=== PATIENT | male | born 1965 | race Caucasian/White ===

== ENCOUNTER 2023-10-25 15:29 | Emergency (ER) | payer OTHER, SELFPAY ==
--- NOTE | ~2023-10-25 | XR_ITS ---
EXAMINATION: XR CHEST CLINICAL INFORMATION: Shortness of breath COMPARISON: None available. TECHNIQUE: 2 views of the chest were obtained. FINDINGS: No significant abnormality is noted involving the heart, lungs, mediastinum, bony thorax or soft tissues. XR/XR chest 2V IMPRESSION: Unremarkable examination.
--- NOTE | ~2023-10-25 | CT_ITS ---
EXAMINATION: CT CHEST WITHOUT CONTRAST CLINICAL INFORMATION: Cough and dyspnea COMPARISON: Chest radiograph earlier today TECHNIQUE: Multidetector volumetric CT imaging of the chest was done. Axial MIP volume rendering provided. Sagittal and coronal reformatted images were obtained. This CT examination was performed using dose optimization techniques as appropriate, variously including the following: *Automated exposure control *Adjustment of mA and/or kV according to patient size (this includes techniques or standardized protocols for targeted exams where dose is matched to indication/reason for exam; i.e. extremities or head) *Use of iterative reconstruction technique DLP: 290 mGy-cm FINDINGS: LUNGS: There is some mild peribronchial thickening present. Some bibasilar atelectasis is seen. No worrisome lung nodules are seen. A right upper lobe calcified granuloma is present. MEDIASTINUM: The mediastinum is normal. CORONARY ARTERY CALCIFICATION: None visualized on this study. PLEURA: There is no pleural effusion. No pleural mass or thickening. AXILLA: No lymphadenopathy. UPPER ABDOMEN: There is hepatosplenomegaly. The adrenal glands and visualized pancreas and kidneys are unremarkable. OSSEOUS STRUCTURES: Unremarkable. CT/CT chest wo IV con IMPRESSION: 1. Mild peribronchial thickening and bibasilar atelectasis. 2. Hepatosplenomegaly. Fleischner guidelines were followed.
[2023-10-25 15:38] VITALS: BP 152/102; PULSE 70; RESP 18; TEMP 37.1; O2SAT 96; BMI 34.6
--- NOTE | 2023-10-25 15:40 | ED_ITS ---
HPI - SOB/Dyspnea General Chief Complaint: Dyspnea Stated Complaint: SOB Time Seen by Provider: 10/25/23 16:38 Source: patient and family Mode of arrival: ambulatory Limitations: no limitations History of Present Illness HPI Narrative: 58 yo male with PMH of asthma, treated hep C no hx of cirrhosis, HIV with reported undetectable viral load, on maintenance methadone here with c/o 1 week of orthopnea, weight gain, LE edema he has never been on a diuretic before. It is worse at night and he cannot breathe. At this time he denies chest pain. He denies fevers, travel, productive cough. MD elicited complaint: shortness of breath Pertinent past history: asthma Onset (ago): week(s) (1) Timing: progressively worsening Severity: moderate Exacerbating factors: lying flat and exertion Relieving factors: rest and upright position Known history of: asthma Associated symptoms: wheezing, orthopnea and other (leg edema) Treatment prior to arrival: none Related Data Previous Rx's Medication Instructions Recorded albuterol sulfate 90 mcg/actuation 2 puff inhalation QID PRN 10/25/23 aerosol inhaler shortness of breath or wheezing #6.7 grams azithromycin 250 mg tablet See Rx Instructions PO .COMPLEX #6 10/25/23 tabs furosemide 40 mg tablet (Lasix) 40 mg PO DAILY #4 tabs 10/25/23 prednisone 20 mg tablet 40 mg (2 x 20 mg) PO DAILY 4 days 10/25/23 #8 tabs Allergies Allergy/AdvReac Type Severity Reaction Status Date / Time No Known Allergies Allergy Verified 10/25/23 15:42 Review of Systems 2 Review of Systems: Constitutional : No Fever, No Chills ENT/Mouth : No sore throat, No Rhinorrhea, No Swallowing Difficulty Eyes: No Eye Pain, No Swelling, No Redness Cardiovascular : No Chest Pain, positive SOB, pos Orthopnea, positive Edema Respiratory : No Cough, No Sputum, pos Wheezing, positive dyspnea Gastrointestinal : No Nausea, No Vomiting, No Diarrhea, No abdominal Pain, No Hematochezia, No Melena Genitourinary : No Dysuria, No Urinary Frequency, No Hematuria Musculoskeletal : No joint pain, No Myalgias Skin : No Skin Lesions, No rash Neuro : No Weakness, No Numbness, No Dizziness, No Headache Psych : No Anxiety/Panic, No Depression All other systems reviewed and are negative [facility] Past Medical History Attestation statement: The following information was validated with the patient. Onset Date is defined in the Problem List Problems that require an onset date and time if occurred within 24 hrs of arrival to the ED Aortic Dissection and Rupture; Neurologic impairment; Cardiopulmonary Arrest; Endotracheal Intubation; Insertion or Replacement of Mechanical Circulatory Assist Device Medical History (Updated 10/25/23 @ 19:34 by Toña Murray DO) Asthma assisted current use of opiate analgesic Hepatitis C HIV (human immunodeficiency virus infection) Social History Social History (Updated 10/25/23 @ 17:13 by Toña Murray DO) Patient Tobacco Use Status: Former Tobacco user Advance Directives: No Advance Directives Information Provided: No Physical Exam 2 Vital Signs: Vital Signs: Last Vital Signs Temp 97.9 F 10/25/23 19:18 Pulse 66 10/25/23 19:18 Resp 17 10/25/23 19:18 BP 134/74 10/25/23 19:18 Pulse Ox 94 10/25/23 19:18 O2 Del Method Room Air 10/25/23 19:18 BMI result Body Mass Index 34.6 Appearance: Alert. Oriented X3. No acute distress. Eyes: Pupils equal, round and reactive to light. ENT: Pharynx normal. Neck: Normal inspection. Neck supple. CVS: Normal heart rate and rhythm. Pulses normal. Respiratory: No respiratory distress. Breath sounds diminished with rales in both bases Abdomen: Soft and nontender. enlarged but no ascites noted Skin: Skin warm and dry. Normal skin color. Normal skin turgor. Extremities: 1-2+ pitting bilateral lower extremity edema. No calf ttp Neuro: Oriented X 3. No motor deficit. No sensory deficit. Course Course Course Narrative: This is an RME: Additional HPI, ROS, PE not included below will be deferred to primary provider. Patient is a 50-year-old male who presents emergency department for evaluation of shortness of breath. Onset was 2 days ago, it is felt while at rest and upon exertion. He states he feels short of breath basically all day. He also states he is noticed swelling to the bilateral lower extremities over the past 2 days. Denies URI symptoms, chest pain, numbness or tingling of the extremities. Denies personal history of DVT/PE Plan: Labs, EKG, CXR, viral testing Reevaluation(s) Reevaluation #1: BNP normal, trop normal, EKG nonischemic does have edema but LFTs normal CXR and ddimer normal doubt VTE will obtain CT chest for pneumonia and given new onset edema will dose with IV lasix Reevaluation #2: feeling better with neb and lasix Medications Administered Discontinued Medications Generic Name Dose Route Start Last Admin Trade Name Freq PRN Reason Stop Dose Admin Albuterol Sulfate 2.5 mg/ 0 mg 10/25/23 17:24 10/25/23 17:29 Albuterol/Ipratropium 3 ml INHALE 10/25/23 17:25 5 dose ONCE ONE Administration Furosemide 40 mg 10/25/23 17:45 10/25/23 18:27 Furosemide 40 Mg/4 Ml Vial IVPUSH 10/25/23 17:46 40 mg STAT STA Administration Protocol Medical Decision Making Medical Decision Making [facility] Narrative: 58 yo male with PMH of asthma, treated hep C no hx of cirrhosis, HIV with reported undetectable viral load, on maintenance methadone here with c/o orthopnea, peripheral edema, TALLEY, at this time will obtain basic labs, EKG, BNP, CXR - bronchodilator protocol and likely IV lasix possible asthma, CHF vs liver issue though reports hx of treatment of hep C. He denies infectious symptoms so pneumonia less likely Differential Diagnosis Differential Diagnoses: The differential diagnosis associated with the presentation includes asthma, CHF Admission/Observation Consideration of admission/observation: Escalation of care including admission/observation considered no hypoxia, trop, BNP, ddimer negative feels much better plan will be to DC Home with INH, prednisone and short course lasix follow up PCP laying flat 95% on RA Lab Data [facility] Lab Attestation statement: I reviewed the patient's lab results. 10/25/23 16:47 10/25/23 16:47 Labs: Lab Results 10/25/23 10/25/23 10/25/23 Range/Units 16:08 16:47 19:23 WBC 5.4 (4.8-10.8) X10*3/uL RBC 3.80 L (4.60-5.80) X10*6/uL Hgb 12.2 L (14.0-18.0) g/dl Hct 36.6 L (42.0-52.0) % MCV 96.3 (80.0-98.0) fL MCH 32.1 (27.0-33.0) pg MCHC 33.3 (31.0-36.0) g/dl RDW 14.3 (11.0-16.0) % Plt Count 181 (160-400) X10*3/uL MPV 9.2 L (9.4-12.4) fL Immature Gran % (Auto) 0.4 (0.0-0.4) % Neut % (Auto) 50.2 (45-73) % Lymph % (Auto) 39.6 (20-40) % [place] % (Auto) 5.7 (2-11) % Eos % (Auto) 3.5 (0-4) % Baso % (Auto) 0.6 (0-2) % Lymph # (Auto) 2.2 (1.2-4.9) X10*3/uL [place] # (Auto) 0.3 (0.1-1.2) X10*3/uL Eos # (Auto) 0.2 (0.0-0.4) X10*3/uL Baso # (Auto) 0.0 (0.0-0.2) X10*3/uL Abs Immat Gran (auto) 0.02 (0.00-0.03) X10*3/uL Absolute Neuts (auto) 2.7 (2.0-8.3) x10*3/uL Absolute Nucleated RBC 0.000 (0.0-0.012) X10*3/uL Nucleated RBC % (auto) 0.0 (0.0-0.2) /100WBC PT 11.0 L (11.1-13.3) SEC INR 0.9 (0.9-1.1) D-Dimer High Sensitivty 159 NG/ML Sodium 141 (135-145) mmol/L Potassium 3.7 (3.3-5.1) mmol/L Chloride 108 (96-108) mmol/L Carbon Dioxide 26 (22-29) mmol/L Anion Gap 11 L (12-20) BUN 17 H (9-16) mg/dL Creatinine 1.10 (0.5-1.4) mg/dL Estim Creat Clear Calc 90.6 Estimated GFR > 60 Random Glucose 124 H (60-115) mg/dL Calcium 9.2 (8.4-10.2) mg/dL Total Bilirubin 0.2 (0.0-1.0) mg/dL AST 13 (5-37) U/L ALT 16 (0-40) U/L Alkaline Phosphatase 90 (39-117) U/L Troponin I High Sens 2.9 (<3.5-35.0) ng/L B-Natriuretic Peptide 94 (<100) pg/mL Total Protein 7.4 (6.5-8.0) g/dL Albumin 3.7 (3.5-5.0) g/dL Urine Color Yellow Urine Appearance Clear Urine pH 5.5 (5.0-9.0) Ur Specific [place] 1.015 (1.005-1.025) Urine Protein Negative (Neg-Trace) mg/dL Urine Glucose (UA) Negative (Negative) mg/dL Urine Ketones Negative (Negative) mg/dL Urine Blood Negative (Negative) Urine Nitrite Negative (Negative) Ur Leukocyte Esterase Negative (Negative) COVID-19 (DIVINE) Negative (Negative) COVID-19 Clin Com See Note Influenza Type A (DI) Negative (Negative) Influenza Type B (DI) Negative (Negative) Influenza A & B Note See Note Independent Interpretation I performed an independent interpretation of an: EKG and Plain X-Ray Interpretation: Rate: 60 Rhythm: NSR [place]: normal Normal P waves. Normal JUAN. Normal QRS complex. ST T wave : normal no NATASHA, nonspecific ST T wave changes I and aVL qTC: 442 prior studies: no prior The study has been interpreted contemporaneously by me. . Radiology Impression Discussion of test interpretation with radiology: I have reviewed the radiologist's reading. Independent Historian Clinical information obtained from an independent historian. History obtained from or confirmed by: Spouse Prescription Management I considered prescription management with: Other Discharge Plan Discharge Clinical Impression: Leg edema, Bronchitis Asthma with exacerbation Qualifiers: Asthma severity: mild Asthma persistence: persistent Qualified Code(s): J45.31 - Mild persistent asthma with (acute) exacerbation Patient Disposition: Home, Self-Care Instructions: Asthma (ED), Acute Bronchitis (ED), Edema (ED) Additional Instructions: slight drop in hemoglobin repeat with doctor in 3 days, mild anemia unlikely to be cause of symptoms heart tests for heart attack and congestive heart failure negative, blood clot negative liver test normal flu and covid negative no pneumonia on CT chest return for worsening symptoms, increased work of breathing or any other concerns. please follow up with your doctor this week Prescriptions: New prednisone 20 mg tablet 40 mg PO DAILY 4 Days Qty: 8 0RF albuterol sulfate 90 mcg/actuation HFA aerosol inhaler 2 puff inhalation QID PRN (Reason: shortness of breath or wheezing) Qty: 6.7 0RF furosemide [Lasix] 40 mg tablet 40 mg PO DAILY Qty: 4 0RF azithromycin 250 mg tablet See Rx Instructions .ROUTE .COMPLEX Qty: 6 0RF Rx Instructions: For 250 mg dose pack: take 500 mg today (day 1), then 250 mg for 4 days (days 2-5)
--- NOTE | 2023-10-25 15:43 | ECG_ITS ---
Test Reason : CHEST PAIN Blood Pressure : / mmHG Vent. Rate : 060 BPM Atrial Rate : 060 BPM P-R Int : 148 ms QRS Dur : 094 ms QT Int : 442 ms P-R-T Axes : 009 020 066 degrees QTc Int : 442 ms Normal sinus rhythm Normal ECG No previous ECGs available Referred By: Eli Rasmussen Electronically Signed By:Mason Mueller
[2023-10-25 16:29] LABS: IDNOW Serial# 58CA691E; Influenza A Negative (Negative); Influenza B2 Negative (Negative)
[2023-10-25 16:30] LABS: COVID-19 Test Negative (Negative); IDNOW Serial# 152EDE1D
[2023-10-25 16:35] VITALS: BP 150/99; PULSE 63; RESP 16; TEMP 36.7; O2SAT 97
[2023-10-25 16:51] LABS: MANUAL DIFF FLAG NO
[2023-10-25 16:54] LABS: Basophils Percent Auto 0.6 % (0-2); Eosinophils Absolute Auto 0.2 X10*3/uL (0.0-0.4); Eosinophils Percent Auto 3.5 % (0-4); Hematocrit 36.6 % (42.0-52.0); Hemoglobin 12.2 g/dl (14.0-18.0); Imm Gran Abs Auto 0.02 X10*3/uL (0.00-0.03); Imm Gran Pct Auto 0.4 % (0.0-0.4); Lymphocytes Absolute Auto 2.2 X10*3/uL (1.2-4.9); Lymphocytes Percent Auto 39.6 % (20-40); Mean Corpuscular HGB Conc 33.3 g/dl (31.0-36.0); Mean Corpuscular Hemoglobin 32.1 pg (27.0-33.0); Mean Corpuscular Volume 96.3 fL (80.0-98.0); Mean Platelet Volume 9.2 fL (9.4-12.4); Monocytes Absolute Auto 0.3 X10*3/uL (0.1-1.2); Monocytes Percent Auto 5.7 % (2-11); Neutrophils Absolute Auto 2.7 x10*3/uL (2.0-8.3); Neutrophils Percent Auto 50.2 % (45-73); Platelet Count 181 X10*3/uL (160-400); Red Cell Distribution Width 14.3 % (11.0-16.0); White Blood Count 5.4 X10*3/uL (4.8-10.8)
[2023-10-25 17:00] LABS: INTERNATIONAL NORM RATIO 0.9 (0.9-1.1)
[2023-10-25 17:08] LABS: Alanine Aminotransferase 16 U/L (0-40); Albumin Level 3.7 g/dL (3.5-5.0); Alkaline Phosphatase 90 U/L (39-117); Anion Gap 11 (12-20); Aspartate Amino Transferase 13 U/L (5-37); Bilirubin Total 0.2 mg/dL (0.0-1.0); Blood Urea Nitrogen 17 mg/dL (9-16); Calcium 9.2 mg/dL (8.4-10.2); Carbon Dioxide 26 mmol/L (22-29); Chloride 108 mmol/L (96-108); Creatinine Clr Calc Pharmacy 90.6; Estimated Glomerular Filt Rate > 60; Glucose Random 124 mg/dL (60-115); Potassium 3.7 mmol/L (3.3-5.1); Sodium 141 mmol/L (135-145); Total Protein 7.4 g/dL (6.5-8.0)
[2023-10-25 17:15] LABS: Troponin-I High Sensitivity 2.9 ng/L (<3.5-35.0)
[2023-10-25 17:18] LABS: B Type Natriuretic Peptide 94 pg/mL (<100)
[2023-10-25] MEDS: Albuterol Sulfate 2.5 MG, Albuterol/Iprat 2.5/0.5MG 3 ML 3 ML INHALE (17:29)
[2023-10-25 17:30] VITALS: PULSE 57; RESP 11; O2SAT 95
[2023-10-25 17:41] LABS: D Dimer High Sensitivity 159 NG/ML
[2023-10-25] MEDS: Furosemide 40 MG/4 ML VIAL IVPUSH (18:27)
[2023-10-25 18:31] VITALS: BP 132/71; PULSE 63; RESP 14; O2SAT 95
[2023-10-25 19:18] VITALS: BP 134/74; PULSE 66; RESP 17; TEMP 36.6; O2SAT 94
[2023-10-25 19:31] LABS: Appearance Urine Clear; Color Urine Yellow; Glucose Urine UA Negative (Negative); Leukocyte Esterase Urine Negative (Negative); Nitrite Urine Negative (Negative); PH 5.5 (5.0-9.0); Specific Gravity - Urine 1.015 (1.005-1.025); Urine Blood Negative (Negative); Urine Ketones Negative (Negative); Urine Protein Negative (Neg-Trace)
[2023-10-25 19:35] LABS: Amphetamine Screen Urine Not Detected (Not Detect); Barbiturates, Urine Not Detected (Not Detect); Benzodiazepines Screen Urine Not Detected (Not Detect); Cannabinoid Screen Urine POSITIVE (Not Detect); Cocaine Screen Urine Not Detected (Not Detect); Fentanyl, urine Not Detected (Not Detect); Opiate Screen Urine Not Detected (Not Detect); Phencyclidine Screen Urine Not Detected (Not Detect)
--- NOTE | 2023-10-25 19:49 | PC.NURSE ---
this rn assumed care of pt @ 1900. pt at bedside. iv removed at discharge. vss. pt ambulatory at discharge. pt denies pain at this time. pt provided with discharge packet. pt verbalized understanding of discharge plan
== END 2023-10-25 19:51 | disposition home or self-care (01) ==
PROVIDERS: Nurse Practitioner Family; Emergency Provider Emergency Medicine
DX: J40 Bronchitis, not specified as acute or chronic (principal); J45.31 Mild persistent asthma with (acute) exacerbation; R06.02 Shortness of breath; R60.0 Localized edema; R07.89 Other chest pain; Z11.52 Encounter for screening for COVID-19; Z79.899 Other long term (current) drug therapy
CPT/HCPCS: 71046; 71250; 80053; 80307; 81003; 83880; 84484; 85025; 85379; 85610; 87502; 87635; 93005; 94640; 96374; 99284; 99285; J1940

== ENCOUNTER → 2023-10-25 15:43 | Outpatient (BNV) | payer OTHER, SELFPAY | PROVIDERS: Emergency Provider Emergency Medicine; Visit Provider Internal Medicine Cardiovascular Disease | DX: R07.9 Chest pain, unspecified (principal) | CPT/HCPCS: 93010 ==

== ENCOUNTER 2023-12-13 08:40 | Emergency (ER) | payer OTHER, SELFPAY ==
--- NOTE | ~2023-12-13 | CT_ITS ---
EXAMINATION: CT ABDOMEN AND PELVIS WITH CONTRAST CLINICAL INFORMATION: Abdominal pain COMPARISON: None available. TECHNIQUE: Multidetector volumetric images were obtained from the superior aspect of the liver through the pubic symphysis following administration 85 mL of Omnipaque 350 intravenous contrast. Sagittal and coronal reformatted images were obtained on the technologist's workstation. Oral contrast: No This CT examination was performed using dose optimization techniques as appropriate, variously including the following: *Automated exposure control *Adjustment of mA and/or kV according to patient size (this includes techniques or standardized protocols for targeted exams where dose is matched to indication/reason for exam; i.e. extremities or head) *Use of iterative reconstruction technique DLP: 732 mGy-cm FINDINGS: LUNG BASES: Bibasilar atelectasis. No pneumothorax. No large pleural effusion. Slight elevation the right hemidiaphragm. LIVER, GALLBLADDER, AND BILIARY TREE: The liver is normal in size, shape, and attenuation. No focal hepatic lesion or biliary ductal dilatation is present. The gallbladder is unremarkable with no evidence of radiopaque gallstones, gallbladder wall thickening, or obvious pericholecystic inflammatory changes. PANCREAS: Unremarkable. SPLEEN: Unremarkable. ADRENAL GLANDS: Unremarkable. KIDNEYS AND URETERS: The kidneys are normal in size, shape, and attenuation. No hydronephrosis, hydroureter, or calculi seen. No perinephric stranding. BLADDER: Trace amount of nondependent air is noted in the urinary bladder with borderline wall thickening. Findings are nonspecific though may reflect cystitis. Correlation with symptomatology. GASTROINTESTINAL TRACT: The small and large bowel are unremarkable. The appendix is unremarkable. ABDOMINAL WALL: Fat filled umbilical hernia. LYMPH NODES: No enlarged lymph nodes per size criteria. VASCULAR: Abdominal aorta is nonaneurysmal. Retroaortic left renal vein. PELVIC VISCERA: Unremarkable. OSSEOUS STRUCTURES: Multilevel degenerative changes of the thoracolumbar and lumbosacral spine greatest at L4-L5. Endplate changes of L4 and L5 with vacuum disc phenomenon may reflect degenerative changes though discitis osteomyelitis not excluded. Correlation with symptomatology. CT/CT abdomen pelvis w IV con IMPRESSION: 1. Trace amount of nondependent air is noted in the urinary bladder with borderline wall thickening. Findings are nonspecific though may reflect cystitis. Correlation with symptomatology. 2. Multilevel degenerative changes of the thoracolumbar and lumbosacral spine. Endplate changes of L4 and L5 with vacuum disc phenomenon may reflect degenerative changes though discitis osteomyelitis not excluded. Correlation with symptomatology.
--- NOTE | ~2023-12-13 | XR_ITS ---
EXAMINATION: XR CHEST, 2 VIEWS CLINICAL INFORMATION: Shortness of breath COMPARISON: CT dated 10/25/2023 TECHNIQUE: PA and lateral views of the chest were obtained. FINDINGS: Mild atelectasis at the bases including at the posterior costophrenic sulci. No consolidation, pneumothorax, or pleural effusion. Cardiac and mediastinal contours are normal. Pulmonary vasculature is unremarkable. Trachea is midline. No acute osseous findings. Prior right distal clavicular resection. XR/XR chest 2V IMPRESSION: Mild bibasilar atelectasis. No acute pulmonary findings.
[2023-12-13 08:46] VITALS: BP 164/103; PULSE 64; RESP 18; TEMP 36.6; O2SAT 97; BMI 33.7
--- NOTE | 2023-12-13 09:06 | PC.NURSE ---
pt reporting 1 year of lower abdominal pain, denies taking medications to help, reports he has been to the doctors but they have told me nothing denies n/v//blood in stool. Also reporting he can not breath if he lays on his back or sides. reports he smokes 3 joints a day. Pt being very vague with his complaints and symptoms
--- NOTE | 2023-12-13 09:34 | ECG_ITS ---
Test Reason : SOB Blood Pressure : / mmHG Vent. Rate : 051 BPM Atrial Rate : 051 BPM P-R Int : 166 ms QRS Dur : 098 ms QT Int : 460 ms P-R-T Axes : 017 036 078 degrees QTc Int : 423 ms Sinus bradycardia Otherwise normal ECG When compared with ECG of 25-OCT-2023 16:06, No significant change was found Referred By: Anna Hawk Electronically Signed By:SREEKANTH CURIEL MD
--- NOTE | 2023-12-13 09:35 | ED.GENADULT ---
HPI - General Adult General Chief complaint: Abdominal Pain Stated complaint: Diff breathing Time Seen by Provider: 12/13/23 09:19 Source: patient and family Mode of arrival: ambulatory History of Present Illness HPI narrative: 58-year-old male with significant past medical history of HIV/hep C, currently being managed through the [facility] and denies that he is detectable or on any antibiotics that would otherwise suggest low CD4 cell count and comes in with complaints of shortness of breath and early satiety without unintentional weight loss. He denies any fever, chills, diarrhea. He also denies any alcohol or illicit drug use. Related Data Previous Rx's Medication Instructions Recorded albuterol sulfate 90 mcg/actuation 2 puff inhalation QID PRN 10/25/23 aerosol inhaler shortness of breath or wheezing #6.7 grams azithromycin 250 mg tablet See Rx Instructions PO .COMPLEX #6 10/25/23 tabs furosemide 40 mg tablet (Lasix) 40 mg PO DAILY #4 tabs 10/25/23 prednisone 20 mg tablet 40 mg (2 x 20 mg) PO DAILY 4 days 10/25/23 #8 tabs Allergies Allergy/AdvReac Type Severity Reaction Status Date / Time No Known Allergies Allergy Verified 12/13/23 08:46 Review of Systems Review of Systems: Pertinent positives and negatives as stated in HPI PMFSH Past Medical History Source: nursing notes reviewed Medical History Asthma care home current use of opiate analgesic Hepatitis C HIV (human immunodeficiency virus infection) Social History Social History Patient Tobacco Use Status: Former Tobacco user Smoked in Last 30 Days: Yes Use of substances other than those prescribed or required for medical reasons: Yes Substance Use Type: Marijuana Substance Use Frequency: Chronic Longstanding Last Used Substance: Just Prior to Admission Advance Directives: No Advance Directives Information Provided: No Physical Exam ED Vital Signs: Vital Signs - 24 hr 12/13/23 08:46 12/13/23 10:26 Temperature 98 F Pulse Rate 64 55 Respiratory Rate 18 20 Blood Pressure 164/103 H 161/99 H Pulse Oximetry 97 98 Oxygen Delivery Method Room Air Room Air BMI result Body Mass Index 33.7 VITAL SIGNS: Reviewed. GENERAL: Elevated BMI, Well developed, well nourished, in no acute distress. HEAD: Normocephalic/atraumatic, EYES: PERRLA, EOMI EARS: Ext canals without abnormality NOSE: Nares patent bilateral OROPHARYNX: no oral lesions noted, posterior pharynx clear NECK: Supple, no adenopathy LUNGS: Normal breath sounds. No adventitious sounds or accessory muscle use. SpO2<98> CARDIOVASCULAR: Regular rate and rhythm without noted murmurs, no JVD 1+ bilateral lower pitting edema ABDOMEN: Soft, non-tender, non-distended with bowel sounds. MUSCULOSKELETAL: No tenderness, deformities, or effusions noted on gross inspection. EXTREMITIES: No cyanosis, clubbing or edema. SKIN: Inspection of the skin reveals no rashes NEUROLOGIC: Alert and oriented x 4. Strength and sensation to light touch were grossly intact x 4. Medications Administered Discontinued Medications Generic Name Dose Route Start Last Admin Trade Name Freq PRN Reason Stop Dose Admin Iohexol 100 ml 12/13/23 12:01 12/13/23 12:02 Iohexol 350 Mg/Ml 100 Ml Infus..Btl IV 12/13/23 12:02 85 ml ONCE ONE Administration Medical Decision Making Medical Decision Making [facility] Narrative: 58-year-old male with history and clinical presentation, DDX: Gastritis, pancreatitis, viral illness, low clinical suspicion for pneumonia or acute intra-abdominal infection. I reviewed all investigations and hematologic indices are negative for leukocytosis or left shift, there is a stable normocytic anemia no thrombocytopenia. VBG does not demonstrate any respiratory acidosis but there is evidence of a mild hypercapnia with pCO2 -52. Chemistry indices are otherwise grossly within normal limits without ANEGLINA or electrolyte/liver enzyme derangements, BNP-58. Urinalysis is negative for UTI or hematuria. CT scan negative for intra-abdominal acute pathology. I was informed by nursing that patient was very irate and walked out of the emergency room. Differential Diagnosis Differential Diagnoses: The differential diagnosis associated with the presentation includes Please see the discussion above Admission/Observation Consideration of admission/observation: Escalation of care including admission/observation considered Please see the discussion above Lab Data [facility] Lab Attestation statement: I reviewed the patient's lab results. Please see the discussion above 12/13/23 10:05 12/13/23 10:05 Labs: Lab Results 12/13/23 12/13/23 12/13/23 Range/Units 10:05 10:08 10:33 WBC 5.5 (4.8-10.8) X10*3/uL RBC 4.03 L (4.60-5.80) X10*6/uL Hgb 13.0 L (14.0-18.0) g/dl Hct 39.3 L (42.0-52.0) % MCV 97.5 (80.0-98.0) fL MCH 32.3 (27.0-33.0) pg MCHC 33.1 (31.0-36.0) g/dl RDW 13.6 (11.0-16.0) % Plt Count 188 (160-400) X10*3/uL MPV 9.1 L (9.4-12.4) fL Immature Gran % (Auto) 0.4 (0.0-0.4) % Neut % (Auto) 48.0 (45-73) % Lymph % (Auto) 43.8 H (20-40) % [place] % (Auto) 4.9 (2-11) % Eos % (Auto) 2.5 (0-4) % Baso % (Auto) 0.4 (0-2) % Lymph # (Auto) 2.4 (1.2-4.9) X10*3/uL [place] # (Auto) 0.3 (0.1-1.2) X10*3/uL Eos # (Auto) 0.1 (0.0-0.4) X10*3/uL Baso # (Auto) 0.0 (0.0-0.2) X10*3/uL Abs Immat Gran (auto) 0.02 (0.00-0.03) X10*3/uL Absolute Neuts (auto) 2.7 (2.0-8.3) x10*3/uL Absolute Nucleated RBC 0.000 (0.0-0.012) X10*3/uL Nucleated RBC % (auto) 0.0 (0.0-0.2) /100WBC VBG pH 7.35 (7.32-7.43) VBG pCO2 52 mmHg VBG pO2 37 mmHg VBG HCO3 29 H (22-26) mmol/L VBG O2 Saturation 60.0 % VBG Base Excess 2.6 mmol/L Sodium 142 (135-145) mmol/L Potassium 4.5 D (3.3-5.1) mmol/L Chloride 107 (96-108) mmol/L Carbon Dioxide 29 (22-29) mmol/L Anion Gap 11 L (12-20) BUN 12 (9-16) mg/dL Creatinine 1.15 (0.5-1.4) mg/dL Estim Creat Clear Calc 85.6 Estimated GFR > 60 Random Glucose 75 (60-115) mg/dL Calcium 9.7 (8.4-10.2) mg/dL Total Bilirubin 0.4 (0.0-1.0) mg/dL AST 14 (5-37) U/L ALT 17 (0-40) U/L Alkaline Phosphatase 76 (39-117) U/L B-Natriuretic Peptide 58 (<100) pg/mL Total Protein 7.2 (6.5-8.0) g/dL Albumin 3.8 (3.5-5.0) g/dL Urine Color Yellow Urine Appearance Clear Urine pH 7.0 (5.0-9.0) Ur Specific [place] 1.015 (1.005-1.025) Urine Protein Negative (Neg-Trace) mg/dL Urine Glucose (UA) Negative (Negative) mg/dL Urine Ketones Negative (Negative) mg/dL Urine Blood Negative (Negative) Urine Nitrite Negative (Negative) Ur Leukocyte Esterase Negative (Negative) Independent Interpretation I performed an independent interpretation of an: EKG Interpretation: Sinus bradycardia, HR-51, no STEMI, [place]/QRS/QTC is within normal limits. Radiology Impression Discussion of test interpretation with radiology: I have reviewed the radiologist's reading. Radiologist Impression: Please see the discussion above External Record Review External record reviewed: Outpatient record, Prior outpatient labs and Prior outpatient radiology Chronic Conditions Hep C, HIV Critical Care Time Critical Care Time Critical Care Time: Yes Total Critical Care Time: 45 Attestation: I personally attest to this time spent taking care of the patient. Discharge Plan Discharge Clinical Impression: Breath shortness, Abdominal discomfort, epigastric Patient Disposition: Elopement Prescriptions: No Action prednisone 20 mg tablet 40 mg PO DAILY 4 Days Qty: 8 0RF albuterol sulfate 90 mcg/actuation HFA aerosol inhaler 2 puff inhalation QID PRN (Reason: shortness of breath or wheezing) Qty: 6.7 0RF furosemide [Lasix] 40 mg tablet 40 mg PO DAILY Qty: 4 0RF azithromycin 250 mg tablet See Rx Instructions .ROUTE .COMPLEX Qty: 6 0RF Rx Instructions: For 250 mg dose pack: take 500 mg today (day 1), then 250 mg for 4 days (days 2-5) Interventions: ED Discharge Assessment Last Done: 12/13/23 13:21 Discharge Date/Time: 12/13/23 13:22
[2023-12-13 10:10] LABS: MANUAL DIFF FLAG NO
[2023-12-13 10:11] LABS: Basophils Percent Auto 0.4 % (0-2); Eosinophils Absolute Auto 0.1 X10*3/uL (0.0-0.4); Eosinophils Percent Auto 2.5 % (0-4); Hematocrit 39.3 % (42.0-52.0); Imm Gran Abs Auto 0.02 X10*3/uL (0.00-0.03); Imm Gran Pct Auto 0.4 % (0.0-0.4); Lymphocytes Absolute Auto 2.4 X10*3/uL (1.2-4.9); Lymphocytes Percent Auto 43.8 % (20-40); Mean Corpuscular HGB Conc 33.1 g/dl (31.0-36.0); Mean Corpuscular Hemoglobin 32.3 pg (27.0-33.0); Mean Corpuscular Volume 97.5 fL (80.0-98.0); Mean Platelet Volume 9.1 fL (9.4-12.4); Monocytes Absolute Auto 0.3 X10*3/uL (0.1-1.2); Monocytes Percent Auto 4.9 % (2-11); Neutrophils Absolute Auto 2.7 x10*3/uL (2.0-8.3); Platelet Count 188 X10*3/uL (160-400); Red Blood Count 4.03 X10*6/uL (4.60-5.80); Red Cell Distribution Width 13.6 % (11.0-16.0); White Blood Count 5.5 X10*3/uL (4.8-10.8)
[2023-12-13 10:16] LABS: VBG Base Excess 2.6 mmol/L; VBG HCO3 29 mmol/L (22-26); VBG pCO2 52 mmHg; VBG pH 7.35 (7.32-7.43); VBG pO2 37 mmHg
[2023-12-13 10:18] LABS: Venous Blood Gas Refer to POC result
[2023-12-13 10:26] VITALS: BP 161/99; PULSE 55; RESP 20; O2SAT 98
[2023-12-13 10:31] LABS: Alanine Aminotransferase 17 U/L (0-40); Albumin Level 3.8 g/dL (3.5-5.0); Alkaline Phosphatase 76 U/L (39-117); Anion Gap 11 (12-20); Aspartate Amino Transferase 14 U/L (5-37); Bilirubin Total 0.4 mg/dL (0.0-1.0); Blood Urea Nitrogen 12 mg/dL (9-16); Calcium 9.7 mg/dL (8.4-10.2); Carbon Dioxide 29 mmol/L (22-29); Chloride 107 mmol/L (96-108); Creatinine Clr Calc Pharmacy 85.6; Estimated Glomerular Filt Rate > 60; Glucose Random 75 mg/dL (60-115); Potassium 4.5 mmol/L (3.3-5.1); Sodium 142 mmol/L (135-145); Total Protein 7.2 g/dL (6.5-8.0)
[2023-12-13 10:36] LABS: B Type Natriuretic Peptide 58 pg/mL (<100)
[2023-12-13 10:42] LABS: Appearance Urine Clear; Color Urine Yellow; Glucose Urine UA Negative (Negative); Leukocyte Esterase Urine Negative (Negative); Nitrite Urine Negative (Negative); Specific Gravity - Urine 1.015 (1.005-1.025); Urine Blood Negative (Negative); Urine Ketones Negative (Negative); Urine Protein Negative (Neg-Trace)
[2023-12-13] MEDS: iohexoL 350 MG/ML 100 ML INFUS..BTL IV (12:02)
== END 2023-12-13 13:22 | disposition left against medical advice (07) ==
PROVIDERS: Emergency Provider Student in an Organized Health Care Education/Training Program
DX: R06.02 Shortness of breath (principal); R10.13 Epigastric pain; R00.1 Bradycardia, unspecified; Z79.899 Other long term (current) drug therapy
CPT/HCPCS: 36415; 71046; 74177; 80053; 81003; 82803; 83880; 85025; 93005; 99284; 99285; Q9967

== ENCOUNTER → 2023-12-13 09:34 | Outpatient (BNV) | payer OTHER, SELFPAY | PROVIDERS: Emergency Provider Student in an Organized Health Care Education/Training Program; Visit Provider Internal Medicine Cardiovascular Disease | DX: R00.1 Bradycardia, unspecified (principal) | CPT/HCPCS: 93010 ==